=== PATIENT | female | born 1975 | race African-American/Black ===

== ENCOUNTER 2018-05-28 07:49 | Emergency (ER) | payer OTHER ==
[~2018-05-28] VITALS: Ht 165.1 cm; Wt 74.4 kg
[2018-05-28 07:51] VITALS: BP 142/93; TEMP 97.7
== END 2018-05-28 09:16 | disposition home or self-care (01) ==
LOC: ED 07:49
DX: T23.271A Burn of second degree of right wrist, initial encounter (principal); T31.0 Burns involving less than 10% of body surface; X13.1XXA Other contact with steam and other hot vapors, initial encounter; Y92.89 Other specified places as the place of occurrence of the external cause
CPT/HCPCS: 99282